=== PATIENT | female | born 1950 | race Caucasian/White ===

== ENCOUNTER 2021-11-02 08:08 | Emergency (ER) | payer SELFPAY ==
[2021-11-02 08:18] VITALS: BP 137/93; PULSE 84
== END 2021-11-02 08:54 | disposition home or self-care (01) ==
LOC: JD.ED 08:08
DX: L03.115 Cellulitis of right lower limb (principal); E78.00 Pure hypercholesterolemia, unspecified; I10 Essential (primary) hypertension; E11.9 Type 2 diabetes mellitus without complications; E03.9 Hypothyroidism, unspecified; Z79.899 Other long term (current) drug therapy
CPT/HCPCS: 99282; 99283